=== PATIENT | male | born 1945 | race Caucasian/White ===

== ENCOUNTER 2022-07-03 19:38 | Emergency (ER) | payer MEDICARE, OTHER | END 2022-07-03 22:05 | disposition home or self-care (01) | LOC: JP.ED 19:38 | DX: K57.90 Diverticulosis of intestine, part unspecified, without perforation or abscess without bleeding (principal); Z88.1 Allergy status to other antibiotic agents; Z79.899 Other long term (current) drug therapy | CPT/HCPCS: 36415; 74176; 80048; 85025; 85651; 86140; 99283; 99285 ==